=== PATIENT | female | born 1965 | race Caucasian/White ===

== ENCOUNTER 2016-11-24 17:28 | Emergency (ER) | payer SELFPAY ==
[~2016-11-24] VITALS: Ht 165.1 cm; Wt 74.1 kg
[~2016-11-24 17:28] MED LIST: DICL50TA9 PO
[2016-11-24] MEDS ORDERED: OxyCODONE HCL/ACETAMINOPHEN 5-325 MG TABLET PO ONE (20:00)
[2016-11-24 20:37] VITALS: BP 128/76
== END 2016-11-24 20:38 | disposition home or self-care (01) ==
LOC: EMS 17:29
DX: S20.219A Contusion of unspecified front wall of thorax, initial encounter (principal); J98.11 Atelectasis; M19.90 Unspecified osteoarthritis, unspecified site; Z90.710 Acquired absence of both cervix and uterus; I10 Essential (primary) hypertension; V49.9XXA Car occupant (driver) (passenger) injured in unspecified traffic accident, initial encounter; Y93.89 Activity, other specified; Y92.413 State road as the place of occurrence of the external cause; Y99.9 Unspecified external cause status
CPT/HCPCS: 71020; 99284

== ENCOUNTER 2016-12-13 12:50 | Emergency (ER) | payer OTHER ==
[~2016-12-13] VITALS: Ht 152.4 cm; Wt 71.0 kg
[2016-12-13] MEDS ORDERED: KETOROLAC TROMETHAMINE 60 MG/2 ML VIAL IM ONE (15:00)
[2016-12-13 15:53] VITALS: BP 169/120
== END 2016-12-13 15:57 | disposition home or self-care (01) ==
LOC: EMS 12:52
DX: S22.41XG Multiple fractures of ribs, right side, subsequent encounter for fracture with delayed healing (principal); I10 Essential (primary) hypertension; X58.XXXD Exposure to other specified factors, subsequent encounter
CPT/HCPCS: 71101; 96372; 99284; J1885

== ENCOUNTER 2018-04-30 21:46 | Emergency (ER) | payer BC, OTHER ==
[~2018-04-30] VITALS: Ht 152.4 cm; Wt 68.2 kg
[2018-04-30] MEDS ORDERED: LORA10TA7 PO (21:55)
[2018-04-30] MEDS ORDERED: AMLO2.5T3 PO (21:55)
[2018-04-30] MEDS ORDERED: LOSA50TA25 PO (21:55)
[2018-04-30] MEDS ORDERED: ACET325T47 PO (21:55)
[2018-04-30] MEDS ORDERED: ASPI-1192 PO (21:55)
[2018-04-30] MEDS ORDERED: RANI150T7 PO (21:55)
[2018-04-30] MEDS ORDERED: SODIUM CHLORIDE 0.9% 1,000 ML IV ONE (22:15)
[2018-04-30] MEDS ORDERED: ONDANSETRON HCL 4 MG/2 ML VIAL IVP ONE (22:45)
[2018-04-30] MEDS ORDERED: DiphenhydrAMINE HCL 50 MG/ML VIAL IVP ONE (22:45)
[2018-04-30 22:50] LABS: APPEARANCE,URINE CLOUDY (CLEAR); BILIRUBIN,URINE NEGATIVE (NEGATIVE); GLUCOSE, URINE (UA) 100 mg/dL (NEGATIVE); KETONES,URINE TRACE mg/dL (NEGATIVE); LEUKOCYTE ESTERASE ,URINE TRACE (NEGATIVE); NITRATE,URINE POSITIVE (NEGATIVE); OCCULT BLOOD,URINE NEGATIVE (NEGATIVE); PH,URINE 5.5 (5.0-8.0); PROTEIN,URINE TRACE (NEGATIVE)
[2018-04-30 22:56] LABS: RBC,URINE 0-2 /HPF (0-2)
[2018-04-30 22:57] LABS: BACTERIA,URINE Moderate /HPF (None Seen); SQUAMOUS EPITHELIAL CELL,UR Moderate /LPF (None Seen)
[2018-05-01] MEDS ORDERED: OXYMETAZOLINE HCL 0.05% 15 ML NASAL SPRAY NASAL ONE (01:15)
[2018-05-01] MEDS ORDERED: IBUPROFEN 600 MG TABLET PO ONE (01:15)
[2018-05-01] MEDS ORDERED: AMOX TR/POT CLAV 875 MG/125 MG TABLET PO ONE (01:15)
[2018-05-01 01:20] VITALS: BP 133/87
== END 2018-05-01 01:26 | disposition home or self-care (01) ==
LOC: EMS 21:47
DX: J32.9 Chronic sinusitis, unspecified (principal); N39.0 Urinary tract infection, site not specified; J34.89 Other specified disorders of nose and nasal sinuses; M19.90 Unspecified osteoarthritis, unspecified site; I10 Essential (primary) hypertension; Z79.82 Long term (current) use of aspirin
CPT/HCPCS: 70450; 81001; 87086; 96374; 96375; 99285; J1200; J2405; J7030

== ENCOUNTER 2021-06-03 10:44 | Emergency (ER) | payer MEDICARE ==
[~2021-06-03] VITALS: Ht 154.9 cm; Wt 64.0 kg
[~2021-06-03 10:44] MED LIST changes: +ACET-3407 PO; +AMLO2.5T96 PO; +ASPI-1192 PO; -DICL50TA9 PO; +LORA10TA7 PO; +LOSA50TA37 PO; +RANI150T7 PO
[2021-06-03] MEDS ORDERED: ACETAMINOPHEN 500 MG TABLET PO ONE (11:45)
[2021-06-03] MEDS ORDERED: ONDANSETRON HCL 4 MG TABLET PO ONE (12:30)
[2021-06-03 13:00] VITALS: BP 127/71
== END 2021-06-03 13:17 | disposition home or self-care (01) ==
LOC: EMS 10:44
DX: T65.891A Toxic effect of other specified substances, accidental (unintentional), initial encounter (principal); I10 Essential (primary) hypertension; M19.90 Unspecified osteoarthritis, unspecified site
CPT/HCPCS: 99283; Q0162

== ENCOUNTER 2022-11-25 15:00 | Emergency (ER) | payer MEDICAID, MEDICARE ==
[~2022-11-25] VITALS: Ht 152.4 cm; Wt 67.7 kg
[~2022-11-25 15:00] MED LIST changes: +LOSA-382 PO; -LOSA50TA37 PO
[2022-11-25] MEDS ORDERED: LOSA100T58 PO (15:17)
[2022-11-25] MEDS ORDERED: AMLO2.5T29 PO (15:17)
[2022-11-25] MEDS ORDERED: GABA-1181 PO (15:17)
[2022-11-25] MEDS ORDERED: HYDR25TA PO (15:17)
[2022-11-25] MEDS ORDERED: IOHEXOL 350 MG/ML 100 ML VIAL ONE (16:27)
[2022-11-25] MEDS ORDERED: SODIUM CHLORIDE 0.9% 100 ML ONE (16:28)
[2022-11-25] MEDS ORDERED: DiphenhydrAMINE HCL 50 MG/ML VIAL IVP ONE (16:30)
[2022-11-25] MEDS ORDERED: MORPHINE SULFATE 4 MG/ML SYRINGE IVP ONE (16:30)
[2022-11-25] MEDS ORDERED: BARIUM SULFATE 0.1% SUSPENSION 450 ML BOTTLE PO ONE (16:30)
[2022-11-25 16:57] LABS: BASOPHILS % (AUTO) 0.9 % (0.0-2.0); EOSINOPHILS % (AUTO) 0.7 % (1.0-6.0); HEMATOCRIT 37.1 % (36-46); HEMOGLOBIN 12.3 g/dL (12.0-16.0); LYMPHOCYTES # (AUTO) 1.9 K/uL (1.0-4.8); LYMPHOCYTES % (AUTO) 27.2 % (22.0-44.0); MEAN CORPUSCULAR HEMOGLOBIN 28.7 pg (26.0-34.0); MEAN CORPUSCULAR HGB CONC 33.2 G/dL (31.0-37.0); MEAN CORPUSCULAR VOLUME 87 fL (80-100); MONOCYTES # (AUTO) 0.5 K/uL (0.1-1.0); NEUTROPHILS # (AUTO) 4.5 K/uL (1.8-7.7); NEUTROPHILS % (AUTO) 64.2 % (40.0-70.0); PLATELET COUNT (AUTO) 244 K/uL (150-450); RED BLOOD CELL COUNT(AUTO) 4.29 MIL/uL (4.00-5.20); RED CELL DISTRIBUTION WIDTH 15.2 % (11.5-14.5)
[2022-11-25 17:00] LABS: ANION GAP 5 mmol/L (8-16); CALCIUM, TOTAL 9.2 mg/dL (8.8-10.5); CARBON DIOXIDE 29 mmol/L (22-29); CHLORIDE 107 mmol/L (98-107); CREATININE 0.63 mg/dL (0.60-1.30); GLOMERULAR FILTR. RATE CALC > 60 mL/min (>60); GLUCOSE,RANDOM 94 mg/dL (70-110); POTASSIUM 3.6 mmol/L (3.5-5.1); SODIUM SERUM 141 mmol/L (136-145); UREA NITROGEN, BLOOD 10 mg/dL (7-18)
[2022-11-25 17:05] LABS: ALANINE AMINOTRANSFERASE 11 U/L (12-78); ALKALINE PHOSPHATASE 75 U/L (46-116); ASPARTATE AMINOTRANSFERASE 15 U/L (15-37); BILIRUBIN,TOTAL 0.5 mg/dL (0.1-1.0); LIPASE 59 U/L (73-393); TOTAL PROTEIN, SERUM 7.4 g/dL (6.4-8.2)
[2022-11-25 19:11] LABS: APPEARANCE,URINE CLEAR (CLEAR); BILIRUBIN,URINE NEGATIVE (NEGATIVE); GLUCOSE, URINE (UA) NEGATIVE (NEGATIVE); KETONES,URINE NEGATIVE (NEGATIVE); LEUKOCYTE ESTERASE ,URINE NEGATIVE (NEGATIVE); NITRATE,URINE NEGATIVE (NEGATIVE); OCCULT BLOOD,URINE NEGATIVE (NEGATIVE); PROTEIN,URINE NEGATIVE (NEGATIVE); SPECIFIC GRAVITIY, URINE 1.005 (1.003-1.030); UROBILINOGEN,URINE <=1.0 mg/dL (<=1.0)
[2022-11-25 20:53] LABS: COVID AG,FIA SOURCE NASAL SWAB
[2022-11-25] MEDS ORDERED: ONDANSETRON HCL 4 MG/2 ML VIAL IVP ONE (23:15)
[2022-11-26 00:58] VITALS: BP 122/59
== END 2022-11-26 01:16 | disposition short-term general hospital (02) ==
LOC: EMS 15:13
DX: K56.609 Unspecified intestinal obstruction, unspecified as to partial versus complete obstruction (principal); K44.9 Diaphragmatic hernia without obstruction or gangrene; R11.2 Nausea with vomiting, unspecified; M19.90 Unspecified osteoarthritis, unspecified site; I10 Essential (primary) hypertension; Z90.710 Acquired absence of both cervix and uterus; Z20.822 Contact with and (suspected) exposure to COVID-19
CPT/HCPCS: 99284; 74177; 96374; 96375; 87426; 80053; 81003; 83690; 84484; 85025; 36415; 74022; 93005; J1200; J2270; J2405; Q9967; J7050